=== PATIENT | female | born 1930 ===

== ENCOUNTER 2021-11-13 05:25 | Day surgery (SDC) | payer OTHER ==
[~2021-11-13] VITALS: Ht 142.2 cm; Wt 58.1 kg
[~2021-11-13 05:25] MED LIST: COZAAR50 MG PO; SYNTHROID100 MCG PO; TENORMIN25 MG PO
== END 2021-11-13 11:45 | disposition home or self-care (01) ==
LOC: CIR.AMB 05:25
PROVIDERS: ATTEND Orthopaedic Surgery Hand Surgery
DX: G56.02 Carpal tunnel syndrome, left upper limb (principal); Z20.822 Contact with and (suspected) exposure to COVID-19; Z91.013 Allergy to seafood; E03.9 Hypothyroidism, unspecified; K21.9 Gastro-esophageal reflux disease without esophagitis